=== PATIENT | female | born 2000 | race Two or more races ===

== ENCOUNTER 2025-08-11 14:02 | Emergency (ER) | payer OTHER ==
[~2025-08-11] VITALS: Ht 205.7 cm; Wt 85.7 kg
[2025-08-11 16:02] LABS: BASO % 0.3 % (0.1-1.2); EOS # 0.01 (0.04-0.54); EOS % 0.1 % (0.7-7.0); LYMPH # 1.29 (1.18-3.74); LYMPH % 11.1 % (19.3-53.1); MEAN PLATELET VOLUME 9.20 fl (9.4-12.4); MONO # 0.28 (0.24-0.82); MONO % 2.4 % (4.7-12.5); NEUT # 9.97 (1.56-6.13); NEUT % 85.8 % (34.0-71.1); RED CELL DISTRIBUTION WIDTH 12.6 % (11.6-14.4)
== END 2025-08-11 19:15 | disposition home or self-care (01) ==
LOC: ER 14:02
PROVIDERS: General Practice
DX: N93.8 Other specified abnormal uterine and vaginal bleeding (principal); R10.2 Pelvic and perineal pain